=== PATIENT | female | born 1990 | race Two or more races ===

== ENCOUNTER 2025-04-24 13:17 | Outpatient (RCR) | payer MEDICAID, SELFPAY ==
--- NOTE | 2025-04-24 13:42 | PT.OIERPT ---
PT OP Initial Eval Patient Information Outpatient Physical Therapy Treatment Date: 04/24/25 Visit Reasons: BILATERAL KNEE PAIN Medical Diagnosis: M25.561 M25.562 Treatment Dx #1: B knee pain Start of Care: 04/24/25 Date of Onset: 3 months ago Smoking Status Smoking Status: Never smoker Initial Assessment Subjective: Pt is 34 yr old portuguese speaking female who c/o B knee pain L>R x3 months. Increased pain with prolonged walking and they swell in the calf area. The knee pain limits HH chores. The LB also hurts. PMH: none reported Imaging: with provider Pt goal: less B knee pain Objective: B knee AROM: ? Flexion: 120 deg ? Extension: full ? SLR: ? 65 deg ? Strength: ? Quads and hamstrings 4-/5 Patella compression: mild pain Varus/valgus stress: positive varus gapping ~5mm B Assessment: Pt presents with varus gapping which affects patella tracking and may be causing some pain Pt requires skilled therapy to improve ROM and strength and has fair rehab potential.? Eval followed by [facility]P with printout. PT recommends B knee braces for stability. Short Term and Nursing Home Goals 1. Ind with HEP 2. Pt will do HH chores x30 mins with <=3/10 B knee pain 3. Pt will ascend/descend 1 flight of stairs with <=3/10 B knee pain Treatment Plan 1. Manual therapy ? 2. Therex ? 3. Modalities as indicated, moist heat, ice, estim Frequency and Duration: 1-2x a week for 12 visits plus the evaluation Certification Dates: 04/24/25 to 07/23/25 Procedure Charges OP PT Eval Mod Complex 30 minutes: Yes
== END 2025-04-29 23:59 | disposition home or self-care (01) ==
LOC: CPTX 13:17
PROVIDERS: PCP Physician Assistant; Referring Provider Physician Assistant; Visit Provider Physician Assistant
DX: M25.562 Pain in left knee (principal); M25.561 Pain in right knee
CPT/HCPCS: 97162

== ENCOUNTER 2025-05-23 08:30 | Outpatient (RCR) | payer MEDICAID, SELFPAY ==
--- NOTE | 2025-05-09 12:44 | PT.ODAYNRPT ---
PT Outpatient Daily Note OP Daily Note Outpatient Physical Therapy Treatment Date: 05/09/25 Visit Reasons: Bilateral knee pain Subjective: Pt reports minimal bilateral knee pain. Objective: See F/S for therex Assessment: Tolerated therex well with no increase in christie knee pain, minimal cues required to avoid knee valgus during exercises; able to self correct. K tape applied to patella borders, christie knee. Plan: Continue with POC Length of Time (minutes) of Treatment: 30 Minutes Procedure Charges Therapeutic Exercise 30 minutes: Yes
--- NOTE | 2025-05-15 13:02 | PT.ODAYNRPT ---
PT Outpatient Daily Note OP Daily Note Outpatient Physical Therapy Treatment Date: 05/15/25 Visit Reasons: Bilateral knee pain Subjective: Pt c/o knee pain. Objective: Please see flow sheet for ther ex list. Assessment: Interventions completed with minimal pain, applied cold pack at end of session. Plan: Continue with POC. Length of Time (minutes) of Treatment: 30 Minutes Procedure Charges Therapeutic Exercise 30 minutes: Yes
--- NOTE | 2025-05-17 13:19 | PT.ODAYNRPT ---
PT Outpatient Daily Note OP Daily Note Outpatient Physical Therapy Treatment Date: 05/17/25 Visit Reasons: Bilateral knee pain Subjective: Pt c/o B knee pain. Objective: Please see flow sheet for ther ex list. Assessment: Minimal discomfort with standing HS curls with WB LE and LE performing knee flexion. Plan: Continue with POC. Length of Time (minutes) of Treatment: 30 Minutes Procedure Charges Therapeutic Exercise 30 minutes: Yes
--- NOTE | 2025-05-21 17:32 | PT.ODAYNRPT ---
PT Outpatient Daily Note OP Daily Note Outpatient Physical Therapy Treatment Date: 05/21/25 Visit Reasons: Bilateral knee pain Subjective: Pt reports minimal christie knee pain due to working on wednesday which involved ascending/descending a ladder throughout the day. Objective: See F/S for therex performed Assessment: Experienced increased christie knee pain with steps up on 6 inch step; modified to 4 inch step w/ improved tolerance. Min vc's required to avoid trunk leaning with resisted 3-way hip exercise; able to self correct. Plan: Continue with POC Length of Time (minutes) of Treatment: 30 Minutes Procedure Charges Therapeutic Exercise 30 minutes: Yes
--- NOTE | 2025-05-23 09:12 | PT.ODAYNRPT ---
PT Outpatient Daily Note OP Daily Note Outpatient Physical Therapy Treatment Date: 05/23/25 Visit Reasons: Bilateral knee pain Subjective: Pt c/o of minimal knee pain today. Reports increased soreness and pain to christie knee post last session which subsided with rest. Objective: See F/S for therex performed Assessment: Progressed to SB mini squats; min vc's required to avoid knees over toes and push hips back first. Good tolerance and appropriate fatigue with therex, no increase in christie knee pain. Plan: Continue with POC Length of Time (minutes) of Treatment: 30 Minutes Procedure Charges Therapeutic Exercise 30 minutes: Yes
== END 2025-05-29 23:59 | disposition home or self-care (01) ==
LOC: CPTX 08:30
PROVIDERS: PCP Physician Assistant; Referring Provider Physician Assistant; Visit Provider Physician Assistant
DX: M25.562 Pain in left knee (principal); M25.561 Pain in right knee
CPT/HCPCS: 97110

== ENCOUNTER 2025-06-13 15:30 | Outpatient (RCR) | payer MEDICAID, SELFPAY ==
--- NOTE | 2025-05-30 16:21 | PT.ODAYNRPT ---
PT Outpatient Daily Note OP Daily Note Outpatient Physical Therapy Treatment Date: 05/30/25 Visit Reasons: Bilateral knee pain Subjective: Pt states she is doing well with minimal pain to christie knee. Objective: See F/S for therex performed Assessment: Improved tolerance and endurance with therex; less rest breaks required due to muscle fatigue. Min vc's required to avoid trunk movement with resisted hip and glute strengthening exercises. Plan: Continue with POC. Length of Time (minutes) of Treatment: 30 Minutes Procedure Charges Therapeutic Exercise 30 minutes: Yes
--- NOTE | 2025-06-04 16:56 | PT.ODAYNRPT ---
PT Outpatient Daily Note OP Daily Note Outpatient Physical Therapy Treatment Date: 06/04/25 Visit Reasons: Bilateral knee pain Subjective: The knees aren't hurting today, didn't go to work Objective: See F/S for therex Assessment: Low tissue irritability of B knees with therex Plan: Continue per POC Length of Time (minutes) of Treatment: 30 Minutes Procedure Charges Therapeutic Exercise 30 minutes: Yes
--- NOTE | 2025-06-06 17:46 | PT.ODAYNRPT ---
PT Outpatient Daily Note OP Daily Note Outpatient Physical Therapy Treatment Date: 06/06/25 Visit Reasons: Bilateral knee pain Subjective: The knees aren't hurting today, didn't go to work Objective: See F/S for therex Assessment: Low tissue irritability of B knees with therex Plan: Continue per POC Length of Time (minutes) of Treatment: 30 Minutes Procedure Charges Therapeutic Exercise 30 minutes: Yes
--- NOTE | 2025-06-13 17:45 | PT.ODS1RPT ---
PT OP Progress/Discharge Note Date of Service: 06/13/25 Progress Note/DC Note Progress Note/Discharge Note: DC Note Patient Information Visit Reasons: Bilateral knee pain Service Continue Service or Discharge: Discharge Discharge Date: 06/13/25 Status Subjective: Pt reports the knees feel about the same as before therapy and pain hasn't improved. The knee brace helps the knee feel more stable but she hasn't tried working with it on. She is ready to be done with therapy. Objective: See F/S for therex B knee ArOM: Flexion: full Extension: full Strength: Quads and HS: 4-/5 Assessment: Pt has attended the evaluation and 05/11 Rx sessions with limited progress with therapy goals due to continued pain. Pt has positive varus gapping of B knees which may be contributing to pain and instability. She may benefit from further diagnostic imaging of B knees. She hasn't met set goals. Thank you for your referrals. Plan: D/C Procedure Charges Therapeutic Exercise 30 minutes: Yes
== END 2025-06-29 23:59 | disposition home or self-care (01) ==
LOC: CPTX 15:30
PROVIDERS: PCP Physician Assistant; Referring Provider Physician Assistant; Visit Provider Physician Assistant
DX: M25.561 Pain in right knee (principal); M25.562 Pain in left knee
CPT/HCPCS: 97110